=== PATIENT | female | born 2000 | race Hispanic/Latino ===

== ENCOUNTER 2020-11-21 14:01 | Emergency (ER) | payer BC ==
[~2020-11-21] VITALS: Ht 139.7 cm; Wt 65.0 kg
[~2020-11-21 14:01] MED LIST: AMOXIL400 MG/5 M OR; NO HOME MEDS
[2020-11-21 14:49] LABS: URINE BILIRUBIN - DIPSTICK NEGATIVE (NEGATIVE); URINE BLOOD DIPSTICK MODERATE (NEGATIVE); URINE COLOR YELLOW; URINE GLUCOSE - DIPSTICK NEGATIVE (NEGATIVE); URINE KETONE NEGATIVE (NEGATIVE); URINE LEUK ESTERASE NEGATIVE (NEGATIVE); URINE PROTEIN - DIPSTICK NEGATIVE (NEG-TRACE); URINE UROBILINOGEN - DIPSTICK 0.2 E.U./dL (0.2)
[2020-11-21 14:50] LABS: HEMATOCRIT 36.4 % (37.0-47.0); HEMOGLOBIN 11.8 g/dl (12.0-16.0); IMMATURE GRANULOCYTES 0.2 % (0.0-5.0); MEAN CELL VOLUME 86.7 fL CALC (80.0-100.0); MEAN CORPUSCULAR HGB 28.1 pG CALC (26.0-32.0); MEAN CORPUSCULAR HGB CONC 32.4 g/dL CAL (32.0-36.0); NEUT# 6.93 thou/uL (2.00-7.15); RED BLOOD COUNT 4.2 mill/uL (4.20-5.60); RED CELL DISTRI WIDTH 12.3 % (11.5-15.5)
[2020-11-21 14:54] LABS: URINE NITRITE - DIPSTICK NEGATIVE (Negative)
[2020-11-21 14:57] LABS: URINE SQUAMOUS EPITHELIAL CELL FEW EPI/hpf (0-FEW); URINE WBC 0-2 WBC/hpf (0-5)
[2020-11-21 15:00] LABS: ALBUMIN 4.4 g/dL (3.2-5.0); AMYLASE 61 u/l (30-110); BILIRUBIN, TOTAL 0.3 mg/dL (0.0-1.4); BUN 7 mg/dL (7-17); BUN/CREATININE RATIO 15 (12-20 (CALC)); CARBON DIOXIDE 25 mmol/l (22-30); CHLORIDE 103 mmol/l (95-108); CREATININE 0.5 mg/dL (0.5-1.0); GFR > 60 ML/MIN (>=60 (CALC)); GFR FOR AFR.AMER. > 60 ML/MIN (>=60 (CALC)); LIPASE 62 u/l (23-300); SGOT/AST 29 u/l (14-36); SODIUM 138 mmol/l (137-146)
[2020-11-21 15:05] LABS: ALKALINE PHOSPHATASE 77 u/l (38-126); ANION GAP 13 (6-22 (CALC)); POTASSIUM 3.3 mmol/l (3.5-5.1)
[2020-11-21 16:14] VITALS: BP 105/62
[2020-11-21] MEDS ORDERED: KEFLEX500 MG PO (17:36)
== END 2020-11-21 17:50 | disposition home or self-care (01) | DRG 395 ==
LOC: ED 14:01
DX: I88.0 Nonspecific mesenteric lymphadenitis (principal)
CPT/HCPCS: Q9967